=== PATIENT | female | born 1950 | race Caucasian/White ===

== ENCOUNTER 2022-10-19 08:17 | Outpatient (CLI) | payer BC | END 2022-10-19 08:18 | disposition home or self-care (01) | LOC: RAD 08:17 | PROVIDERS: ATTEND Internal Medicine Rheumatology | DX: M47.896 Other spondylosis, lumbar region (principal); Z78.0 Asymptomatic menopausal state | CPT/HCPCS: 72100 ==

== ENCOUNTER 2023-05-29 11:15 | Outpatient (CLI) | payer BC | END 2023-05-29 11:16 | disposition home or self-care (01) | LOC: BICMRI 11:15 | PROVIDERS: ATTEND Physical Medicine & Rehabilitation | DX: M54.50 Low back pain, unspecified (principal); M47.816 Spondylosis without myelopathy or radiculopathy, lumbar region; M51.36 Other intervertebral disc degeneration, lumbar region; M89.38 Hypertrophy of bone, other site; M41.9 Scoliosis, unspecified; R60.9 Edema, unspecified | CPT/HCPCS: 70250; 72148 ==

== ENCOUNTER 2023-06-20 16:56 | Outpatient (CLI) | payer BC | END 2023-06-20 16:57 | disposition home or self-care (01) | LOC: RAD 16:56 | PROVIDERS: ATTEND Nurse Practitioner Family | DX: M25.551 Pain in right hip (principal); M25.552 Pain in left hip ==

== ENCOUNTER 2023-11-29 08:48 | Outpatient (CLI) | payer BC | END 2023-11-29 08:49 | disposition home or self-care (01) | LOC: BICMAMMO 08:48 | PROVIDERS: ATTEND Internal Medicine Rheumatology | DX: Z13.820 Encounter for screening for osteoporosis (principal); M54.50 Low back pain, unspecified; M85.89 Other specified disorders of bone density and structure, multiple sites; Z78.0 Asymptomatic menopausal state | CPT/HCPCS: 77080 ==

== ENCOUNTER 2024-11-13 09:18 | Outpatient (CLI) | payer BC | END 2024-11-13 09:19 | disposition home or self-care (01) | LOC: BICMAMMO 09:18 | PROVIDERS: ATTEND Family Medicine | DX: Z12.31 Encounter for screening mammogram for malignant neoplasm of breast (principal); Z80.3 Family history of malignant neoplasm of breast | CPT/HCPCS: 77063; 77067 ==

== ENCOUNTER 2025-04-23 08:44 | Outpatient (CLI) | payer BC ==
[2025-04-23 09:39] LABS: Estimated GFR - POC 68.0
[2025-04-23] MEDS ORDERED: Iopamidol 370 76% 100 ML VIAL ONE (12:41)
== END 2025-04-23 08:45 | disposition home or self-care (01) ==
LOC: CT 08:44
PROVIDERS: ATTEND Family Medicine
DX: G43.109 Migraine with aura, not intractable, without status migrainosus (principal); H74.8X2 Other specified disorders of left middle ear and mastoid; Z98.890 Other specified postprocedural states
CPT/HCPCS: 36415; 70470; 82565; Q9967

== ENCOUNTER 2025-04-23 10:05 | Outpatient (CLI) | payer BC | END 2025-04-23 10:06 | disposition home or self-care (01) | LOC: BICRAD 10:05 | PROVIDERS: ATTEND Internal Medicine Rheumatology | DX: M25.561 Pain in right knee (principal); M17.11 Unilateral primary osteoarthritis, right knee ==